=== PATIENT | male | born 1960 | race Caucasian/White ===

== ENCOUNTER 2019-07-04 05:57 | Day surgery (SDC) | payer OTHER, SELFPAY ==
[2019-07-03 09:30] VITALS: BMI 27.9
[2019-07-04 06:22] VITALS: BP 109/67; PULSE 60; RESP 18; TEMP 36.3; O2SAT 97
[2019-07-04] MEDS: sodium chloride 0.9% 1,000 ML 30 ML (06:25)
--- NOTE | 2019-07-04 06:44 | ANES.PREANE2 ---
Pre-Anesthetic Assessment Pre-Anesthetic Assessment: Height/Weight: Height 1.78 m Weight 88.451 kg Temp Pulse Resp BP Pulse Ox 97.4 F L 60 18 109/67 97 07/04/19 06:22 07/04/19 06:22 07/04/19 06:22 07/04/19 06:22 07/04/19 06:22 Preop Diagnosis: Screening colonoscopy Proposed Procedure: Operation Date: 07/04/19 07:00 Proposed Procedures p Colonoscopy 03452/Z12.11(Not Applicable) - Aaron De La Fuente MD Was Beta Gabriele taken within 24 hours: Yes Last intake: Intake Last Liquid Date 07/03/19 Last Liquid Time 20:00 Last Solid Date 07/02/19 Last Solid Time 18:00 Social: Social History: Tobacco Packs per day: 1 Exam: Pre-Anes Outpt Exam: alert and oriented x 3 Airway: Dentition: Loose (bottom) and Full (top) History/ROS: No significant history except as noted and No significant complaints Pulmonary: Pulmonary: None reported CV/HEM: CV/HEM: [place] (2stents 2016 ) Comments: denies any symptoms since : : None reported Hepatic: Hepatic: None reported GI: GI: None reported Metabolic: Metabolic: Hyperlipidemia Musc/skel: Musc/skel: None reported Neuropsych: Neuropsych: None reported Anesthetic Plan: ASA status: 3 Anesthesia: MAC Risk of > 500 ml blood loss (7ml/kg in children): No PFSH Anesthesia PFSH: Social History Smoking and tobacco status: former smoker Alcohol intake: current Alcohol intake frequency: 0-2 Drinks per Day Household members: spouse Marital status: Current occupational status: employed History of recent travel: No Data Anesthesia Cardiac Studies: No Data to Display
--- NOTE | 2019-07-04 06:59 | W.PM.OPSUD ---
Surgery/Procedure H&P Update DATE OF PROCEDURE: July 04, 2019 DATE H&P PERFORMED: 06/20/19 H&P UPDATE INFORMATION: I have reviewed H&P completed within last 30 days, I have examined patient prior to procedure and No changes to prior documentation PREOP DIAGNOSIS: Screening colonoscopy PLANNED PROCEDURE: Operation Date: 07/04/19 07:00 Proposed Procedures p Colonoscopy(Not Applicable) - Aaron De La Fuente MD
[2019-07-04 07:28] VITALS: BP 96/60; PULSE 58; RESP 16; TEMP 36.1; O2SAT 98
[2019-07-04 07:45] VITALS: BP 94/62; PULSE 52; RESP 18; O2SAT 96
--- NOTE | 2019-07-04 07:47 | ANE.PACU2 ---
 Inpatient post-anesthesia follow up: Airway intact: Yes Vital signs: Temperature 97 F Pulse Rate 58 Respiratory Rate 16 Blood Pressure 96/60 Pulse Oximetry 98 Oxygen Delivery Me thod Nasal Cannula Oxygen Flow Rate 3 Fraction of Inspir ed Oxygen Hydration adequate: Yes Nausea and vomiting: No Mental status: Baseline
== END 2019-07-04 07:57 | disposition home or self-care (01) ==
PROVIDERS: Family Provider Family Medicine; PCP Family Medicine; Visit Provider Surgery
PROC: 0DJD8ZZ Inspection of Lower Intestinal Tract, Via Natural or Artificial Opening Endoscopic (ICD-10-PCS; CPT 45378; principal; 2019-07-04 07:00)
DX: Z12.11 Encounter for screening for malignant neoplasm of colon (principal); D12.4 Benign neoplasm of descending colon; K57.30 Diverticulosis of large intestine without perforation or abscess without bleeding; K64.8 Other hemorrhoids; I25.2 Old myocardial infarction; E78.5 Hyperlipidemia, unspecified; Z95.5 Presence of coronary angioplasty implant and graft; Z87.891 Personal history of nicotine dependence
CPT/HCPCS: 12345; 45380; 88305; J2001; J2704; J7030

== ENCOUNTER 2019-11-12 19:45 | Emergency (ER) | payer OTHER, SELFPAY ==
--- NOTE | 2019-11-12 19:53 | XRR_ITS ---
PROCEDURE INFORMATION: Exam: XR Right Hip with Pelvis when Performed Exam date and time: 11/12/2019 8:53 PM Age: 58 years old Clinical indication: Injury or trauma; Fall; Initial encounter; Blunt trauma (contusions or hematomas); Right; Hip; Additional info: Injury, fell, hurts to bear weight TECHNIQUE: Imaging protocol: XR Right hip with pelvis when performed. Views: 1 view. COMPARISON: No relevant prior studies available. FINDINGS: Bones/joints: Unremarkable. No acute fracture. Soft tissues: Unremarkable. XR/XR hip RT 2-3V wo/w pel* [id number] IMPRESSION: No acute findings.
[2019-11-12 19:55] VITALS: BP 119/71; PULSE 74; RESP 14; TEMP 37.2; O2SAT 96; BMI 26.5
[2019-11-12 20:31] VITALS: BP 105/78; PULSE 78; RESP 16; O2SAT 97
--- NOTE | 2019-11-12 20:32 | XRR_ITS ---
PROCEDURE INFORMATION: Exam: XR Lumbosacral Spine, 2 or 3 Views Exam date and time: 11/12/2019 8:55 PM Age: 58 years old Clinical indication: Injury or trauma; Fall; Initial encounter; Blunt trauma (contusions or hematomas); Injury date: Today; Additional info: Fall, hurts to bear weight TECHNIQUE: Imaging protocol: XR of the lumbosacral spine, 2 or 3 views. COMPARISON: No relevant prior studies available. FINDINGS: Vertebrae: There is a moderate lumbar levoscoliosis. There is straightening of the normal lumbar lordosis. There is 17 mm of grade 1 anterolisthesis of L5 with respect to S1 with suspected pars defects. There is multilevel severe intervertebral disc space loss. Soft tissues: Unremarkable. XR/XR lumbar spine 2-3V* [id number] IMPRESSION: 1. No fracture. 2. Chronic changes.
--- NOTE | 2019-11-12 20:32 | XRR_ITS ---
PROCEDURE INFORMATION: Exam: XR Right Femur Exam date and time: 11/12/2019 8:53 PM Age: 58 years old Clinical indication: Injury or trauma; Fall; Initial encounter; Blunt trauma; Thigh or upper leg; Right; Injury date: Today TECHNIQUE: Imaging protocol: XR Right femur. Views: 2 views. COMPARISON: CR Knee 3 views, RIGHT* [id number] 04/17/2018 1:30 PM FINDINGS: Bones/joints: There is no acute fracture. There is moderate patellofemoral compartment degeneration. Soft tissues: Unremarkable. XR/XR femur RT min 2V* [id number] IMPRESSION: No acute abnormality.
--- NOTE | 2019-11-12 20:33 | ED_ITS ---
HPI - Fall General: Chief Complaint: Fall Stated Complaint: R HIP INJURY/FALL Time Seen by Provider: 11/12/19 20:20 Source: patient Mode of arrival: ambulatory Limitations: no limitations History of Present Illness: HPI Narrative: 58-year-old male who states he fell roughly 3 to 4 feet and landed on a tailgate. Patient landed on his right leg and does have a contusion to right proximal femur of the lateral aspect. States has been able to ambulate but does have pain there at the site. He denies hitting his head. He states he had some slight back pain as well. States that back pain just started last 10 to 15 minutes. Denies chest or abdominal pain. complaint: fall Onset (ago): minute(s) Fall from: from height (distance) Associated symptoms-after fall: Denies abdominal pain, chest pain, headache(s) or neck pain Review of Systems Const: Denies: fever(s), chills, body aches or change in appetite Eyes: Denies: blurry vision or eye discomfort ENMT: Denies: throat pain or dental pain Card: Denies: chest pain Resp: Denies: dyspnea GI: Denies: abdominal pain, nausea, vomiting or diarrhea : Denies: dysuria Musc: Denies: neck pain or back pain Skin/Breast: Denies: rash Neuro: Denies: headache(s) Psych: Denies: depression Rohan/Lymph: Denies: easy bruising All/Imm: Denies: urticaria PFSH ED PFSH: Medical History (Updated 11/12/19 @ 20:55 by Sabrina Arreaga MD) History of myocardial infarction (05/2016) [address] Fernandez Hypercholesterolemia Hypertension Surgical History (Updated 07/04/19 @ 07:26 by Aaron De La Fuente MD) H/O circumcision History of arthroscopy of left knee (02/2016) Torn Meniscu History of open reduction and internal fixation (ORIF) procedure right clavicle Status post colonoscopy with polypectomy 07/04/2019: Polyps in descending colon and sigmoid colon, diverticulosis and internal hemorrhoids Status post left inguinal hernia repair Family History Father Myocardial infarction 2 Brother Myocardial infarction Mother Stroke Cancer Breast Denies family history of Anesthesia complication Bleeding disorder Social History Smoking and tobacco status: former smoker Alcohol intake: current Alcohol intake frequency: 0-2 Drinks per Day Household members: spouse Marital status: Current occupational status: employed History of recent travel: No Physical Exam Const: COMMON NORMALS: no acute distress, patient oriented x3 and healthy appearing HENMT: COMMON NORMALS: normocephalic and atraumatic HEAD & SCALP: normocephalic and atraumatic Eye: COMMON NORMALS: Equal, round and reactive pupils present and EOMs intact bilaterally PUPIL: Yes Equal, round and reactive pupils present Neck/C-Spine: COMMON NORMALS: full ROM and supple Chest: COMMONS NORMALS: normal inspection of the chest and normal palpation of entire chest wall Resp: COMMON NORMALS: normal respiratory effort, No retractions, No use of accessory muscles and clear to auscultation bilaterally AUSCULTATION: clear to auscultation bilaterally Cardio: COMMON NORMALS: regular rate, regular rhythm and No murmurs present (Cardio) RATE: regular rate RHYTHM: regular rhythm GI: COMMON NORMALS: Normal to inspection, nondistended, normoactive bowel sounds present, Soft to palpation, non-tender and no masses PALPATION: Yes Soft to palpation Extremity: COMMON NORMALS: full ROM NARRATIVE EXTREMITY EXAM: Moderate- sized contusion to right lateral proximal femur patient able to bear weight and has full range of motion slight tenderness along paraspinal region of lumbar spine Neuro: COMMON NORMALS: patient oriented x3, moves all extremities and no focal motor deficits Psych: COMMON NORMALS: mental status grossly normal, Normal thought process present and cooperative THOUGHT PROCESS: Normal thought process present Skin: COMMON NORMALS: no rashes or lesions noted and no wounds GENERAL SKIN EXAM: no rashes or lesions noted Course Vital Signs: Vital signs: Vital Signs Temperature 99.0 F 11/12/19 19:55 Pulse Rate 78 11/12/19 20:31 Respiratory Rate 16 11/12/19 20:31 Blood Pressure 105/78 11/12/19 20:31 Pulse Oximetry 97 11/12/19 20:31 MDM - Fall MDM Narrative: Medical decision making narrative: Aamir presents here with contusion to proximal femur. He was able to ambulate here and has no signs of any fractures. Patient is to ice and I will Alejandro wrap as well. He is to follow- up his primary care doctor in 3 to 5 days and return if worsening. Imaging Data^: xr l spine: Attestation: I personally reviewed and interpreted this imaging study as follows: My impression: no acute abnormality xr right hip: Attestation: I personally reviewed and interpreted this imaging study as follows: My impression: no acute fx xr r femur: My impression: no acute abnormality Discharge Plan Discharge Patient Disposition: Home, Self-Care Clinical Impression: Fall Qualifiers: Encounter type: initial encounter Qualified Code(s): W19.XXXA - Unspecified fall, initial encounter Contusion of hip, right Qualifiers: Encounter type: initial encounter Qualified Code(s): S70.01XA - Contusion of right hip, initial encounter Condition: Stable Prescriptions: New Naprosyn 500 mg tablet 500 mg PO BID PRN (Reason: pain) Qty: 20 RF: 0 No Action nitroglycerin [Nitrostat] 0.4 mg tablet, sublingual 0.4 mg SUBLINGUAL Q5M PRN (Reason: Chest Pain) RF: 0 simvastatin 40 mg tablet 40 mg PO DAILY RF: 0 metoprolol tartrate 25 mg tablet 25 mg PO BID RF: 0 lisinopril 5 mg tablet 5 mg PO DAILY RF: 0 clopidogrel [Plavix] 75 mg tablet 75 mg PO DAILY RF: 0 aspirin [Adult Low Dose Aspirin] 81 mg tablet,delayed release (DR/EC) 81 mg PO DAILY RF: 0 Multiple Vitamins Tablet 1 tab PO DAILY RF: 0 Tylenol 325 mg Tablet 325 mg PO QID PRN (Reason: Pain) RF: 0 Discharge Orders: Discharge Order (Routine); Ordered 11/12/19 Ordered By: Sabrina Arreaga Referrals: Gabriel Pratt MD [Primary Care Provider] - 1-3 days Discharge Diet: Advance as tolerated Discharge Activity: Resume usual activity Patient Instructions: Contusion in Adults (ED) Coding Level of Care Code ED Diamond Cleaner for Mi Auguste Exam Comprehensive
[2019-11-12] MEDS: HYDROcodone-acetaminophen 7.5-325 mg Tablet 1 TAB PO (20:36)
--- NOTE | 2019-11-12 21:04 | PC.NURSE ---
kelli wrap 6 inch to right thigh
[2019-11-12 21:11] VITALS: PULSE 68; RESP 16; O2SAT 97
== END 2019-11-12 21:12 | disposition home or self-care (01) ==
PROVIDERS: Emergency Provider Emergency Medicine; Family Provider Family Medicine; PCP Family Medicine
DX: S70.01XA Contusion of right hip, initial encounter (principal); W17.89XA Other fall from one level to another, initial encounter; Z79.02 Long term (current) use of antithrombotics/antiplatelets; Z79.82 Long term (current) use of aspirin; I25.2 Old myocardial infarction; I10 Essential (primary) hypertension; Z87.891 Personal history of nicotine dependence
CPT/HCPCS: 12345; 72100; 73502; 73552; 99281; 99283

== ENCOUNTER → 2019-12-05 08:11 | Outpatient (BNVA) | payer OTHER, SELFPAY | PROVIDERS: Family Provider Family Medicine; PCP Family Medicine; Visit Provider Specialist | DX: Z71.89 Other specified counseling (principal); M54.30 Sciatica, unspecified side; S70.01XA Contusion of right hip, initial encounter; S20.211A Contusion of right front wall of thorax, initial encounter; M79.7 Fibromyalgia; Z87.891 Personal history of nicotine dependence; X58.XXXA Exposure to other specified factors, initial encounter | CPT/HCPCS: 20610; 99203; G0463; J1030; J3490 ==

== ENCOUNTER 2019-12-13 14:46 | Outpatient (CLI) | payer OTHER, SELFPAY ==
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
== END 2019-12-13 14:47 | disposition home or self-care (01) ==
PROVIDERS: PCP Family Medicine; Visit Provider Specialist
DX: M53.3 Sacrococcygeal disorders, not elsewhere classified (principal); M43.17 Spondylolisthesis, lumbosacral region; M51.36 Other intervertebral disc degeneration, lumbar region; R60.0 Localized edema
CPT/HCPCS: 72148

== ENCOUNTER → 2019-12-31 08:24 | Outpatient (BNVA) | payer OTHER, SELFPAY | PROVIDERS: PCP Family Medicine; Referring Provider Specialist; Visit Provider Anesthesiology Pain Medicine | DX: G89.29 Other chronic pain (principal); M54.42 Lumbago with sciatica, left side; M51.36 Other intervertebral disc degeneration, lumbar region; M54.16 Radiculopathy, lumbar region; M54.9 Dorsalgia, unspecified; M43.10 Spondylolisthesis, site unspecified; F17.210 Nicotine dependence, cigarettes, uncomplicated | CPT/HCPCS: 99205 ==

== ENCOUNTER → 2020-01-06 14:40 | Outpatient (BNVA) | payer OTHER, SELFPAY | PROVIDERS: PCP Family Medicine; Visit Provider Anesthesiology Pain Medicine | DX: M54.16 Radiculopathy, lumbar region (principal); M54.30 Sciatica, unspecified side; M54.9 Dorsalgia, unspecified; F17.210 Nicotine dependence, cigarettes, uncomplicated | CPT/HCPCS: 64483; 64484; J1040; J3490 ==

== ENCOUNTER → 2020-02-17 13:18 | Outpatient (BNVA) | payer OTHER, SELFPAY | PROVIDERS: PCP Family Medicine; Visit Provider Anesthesiology Pain Medicine | DX: M54.16 Radiculopathy, lumbar region (principal); M54.9 Dorsalgia, unspecified; F17.210 Nicotine dependence, cigarettes, uncomplicated | CPT/HCPCS: 64483; 64484; J1040; J3490 ==

== ENCOUNTER → 2020-03-02 11:01 | Outpatient (BNVA) | payer OTHER, SELFPAY | PROVIDERS: PCP Family Medicine; Visit Provider Anesthesiology Pain Medicine | DX: G89.29 Other chronic pain (principal); M51.36 Other intervertebral disc degeneration, lumbar region; M54.16 Radiculopathy, lumbar region; M54.9 Dorsalgia, unspecified; M54.30 Sciatica, unspecified side; M43.10 Spondylolisthesis, site unspecified; F17.210 Nicotine dependence, cigarettes, uncomplicated | CPT/HCPCS: 99212 ==

== ENCOUNTER 2020-04-03 00:21 | Emergency (ER) | payer OTHER, SELFPAY ==
[2020-04-03 00:25] VITALS: BP 119/70; PULSE 72; RESP 16; TEMP 36.4; O2SAT 98; BMI 27.2
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
[2020-04-03 00:39] VITALS: BP 104/74; PULSE 70; RESP 16; O2SAT 95
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
[2020-04-03] MEDS: ketorolac 60 mg/2 mL INJ IM (00:46)
[2020-04-03] MEDS: HYDROcodone-acetaminophen 7.5-325 mg Tablet 1 TAB PO (01:20)
[2020-04-03 01:22] VITALS: BP 99/57; PULSE 80; RESP 16; O2SAT 98
[2020-04-03 01:40] VITALS: BP 104/70; PULSE 72; RESP 14
== END 2020-04-03 01:42 | disposition home or self-care (01) ==
PROVIDERS: Emergency Provider Nurse Practitioner Family; PCP Family Medicine
DX: Z04.1 Encounter for examination and observation following transport accident (principal); Z79.82 Long term (current) use of aspirin; I10 Essential (primary) hypertension; I25.2 Old myocardial infarction; F17.210 Nicotine dependence, cigarettes, uncomplicated; V89.2XXA Person injured in unspecified motor-vehicle accident, traffic, initial encounter
CPT/HCPCS: 12345; 71045; 73030; 96372; 99281; 99283; J1885

== ENCOUNTER → 2020-04-07 09:13 | Outpatient (BNVA) | payer OTHER, SELFPAY | PROVIDERS: PCP Family Medicine; Referring Provider Specialist; Visit Provider Orthopaedic Surgery | DX: M54.5 Low back pain (principal); Q76.49 Other congenital malformations of spine, not associated with scoliosis | CPT/HCPCS: 72120 ==

== ENCOUNTER → 2020-09-10 08:37 | Outpatient (BNVA) | payer OTHER, SELFPAY | PROVIDERS: PCP Family Medicine; Visit Provider Anesthesiology Pain Medicine | DX: G89.29 Other chronic pain (principal); M54.41 Lumbago with sciatica, right side; M51.36 Other intervertebral disc degeneration, lumbar region; M54.16 Radiculopathy, lumbar region; M54.9 Dorsalgia, unspecified; M43.10 Spondylolisthesis, site unspecified; F17.210 Nicotine dependence, cigarettes, uncomplicated; Z79.891 Long term (current) use of opiate analgesic | CPT/HCPCS: 99214 ==

== ENCOUNTER → 2020-09-11 12:55 | Outpatient (BNVA) | payer OTHER, SELFPAY | PROVIDERS: PCP Family Medicine; Visit Provider Anesthesiology Pain Medicine | DX: M54.16 Radiculopathy, lumbar region (principal); M54.9 Dorsalgia, unspecified; F17.210 Nicotine dependence, cigarettes, uncomplicated; Z79.891 Long term (current) use of opiate analgesic | CPT/HCPCS: 64483; 64484; J1100; J3490 ==

== ENCOUNTER 2021-02-02 14:54 | Outpatient (CLI) | payer OTHER, SELFPAY ==
--- NOTE | 2021-02-02 15:00 | USCV_ITS ---
Aamir Thompson Age: 60 Gender: M : 1960 Exam Date: 02/02/2021 15:20 Ordering Phys: Herlinda Fernandez MD ([email or web address]) Technologist: Bekah Aparicio [place] [facility] [place] CAROTID BRUIT Risk Factors: Previous Vascular Surgery: Right Brachial BP: / Left Brachial BP: / Right Left Velocity (cm/s) Spectral Plaque Velocity (cm/s) Spectral Plaque Syst/Diast Broadening Syst/Diast Broadening 68.40/ 12.10 Prox CCA 88.20 / 18.70 45.10/ 14.80 Mid CCA 52.00 / 14.00 50.50/ 12.40 Distal CCA 50.50 / 13.20 60.60/ 13.20 Prox ICA 51.30 / 16.40 55.90/ 21.80 Mid ICA 69.90 / 29.50 59.80/ 24.40 Distal ICA 65.00 / 26.50 80.80 ECA 72.20 0.89 ICA/CCA 0.79 Antegrade Vertebral Antegrade 36.00/ 13.90 cm/s 36.30/ 10.30 cm/s Tri Subclavian Tri 93.30 127.5 0 FINDINGS Intimal thickening in the common carotid and internal carotid arteries bilaterally. Normal Doppler flow velocities and ratios. Antegrade flow in the vertebral arteries bilaterally. CONCLUSIONS Minimal intimal thickening in the common carotid and internal carotid arteries bilaterally. No significant stenosis or unstable plaques, based on the above findings Dr Dave Gonzalez MD [facility] (Electronically Signed) Final Date: 04 February 2021 14:31 S
== END 2021-02-02 14:55 | disposition home or self-care (01) ==
LOC: US 14:56
PROVIDERS: PCP Family Medicine; Visit Provider Internal Medicine Cardiovascular Disease
DX: R09.89 Other specified symptoms and signs involving the circulatory and respiratory systems (principal)
CPT/HCPCS: 93880

== ENCOUNTER → 2022-04-28 08:11 | Outpatient (BNVA) | payer OTHER, SELFPAY | PROVIDERS: PCP Family Medicine; Visit Provider Family Medicine | DX: Z00.00 Encounter for general adult medical examination without abnormal findings (principal); E78.5 Hyperlipidemia, unspecified; I10 Essential (primary) hypertension; I25.10 Atherosclerotic heart disease of native coronary artery without angina pectoris | CPT/HCPCS: 80053; 80061; 85025 ==

== ENCOUNTER → 2023-01-04 08:33 | Outpatient (BNVA) | payer SELFPAY | PROVIDERS: PCP Family Medicine; Visit Provider Clinical Nurse Specialist Adult Health | DX: R42 Dizziness and giddiness (principal) | CPT/HCPCS: 80053; 83735 ==